=== PATIENT | female | born 1985 | race Hispanic/Latino ===

== ENCOUNTER 2018-11-27 02:43 | Inpatient (IN) ==
[2018-11-27] MEDS ORDERED: AMPICILLIN 2 GM/NS 2 GM/100 ML IVPB IV ONE (02:55)
[2018-11-27] MEDS ORDERED: STADOL IV PRN (02:55)
[2018-11-27] MEDS ORDERED: PEPCID IV PRN (02:55)
[2018-11-27] MEDS ORDERED: PEPCID PO PRN ×2 (02:55)
[2018-11-27] MEDS ORDERED: REGLAN PO PRN (02:55)
[2018-11-27] MEDS ORDERED: KEFZOL 1 GM/D5W 1 GM/50 ML IVPB IV PRN (02:55)
[2018-11-27] MEDS ORDERED: ZOFRAN IV PRN (02:55)
[2018-11-27] MEDS ORDERED: TYLENOL PO PRN (02:55)
[2018-11-27] MEDS ORDERED: XYLOCAINE-MPF 1% INJ PRN ×3 (03:00→20:19)
[2018-11-27] MEDS ORDERED: PITOCIN 30 UNITS/NS 30 UNIT/500 ML IV.SOLN IV SCH ×2 (03:00→20:30)
[2018-11-27] MEDS ORDERED: LR 1,000 ML IV SCH (03:00)
[2018-11-27] MEDS ORDERED: SODIUM CHLORIDE 0.9% INJ SCH (03:00)
[2018-11-27] MEDS ORDERED: MINERAL OIL PO PRN ×3 (03:00→20:19)
[2018-11-27 03:13] LABS: URINE SOURCE VOIDED
[2018-11-27 03:35] LABS: BASO# 0.02 X1000 (0.0-0.2); BASO% 0.3 % (0.0-0.8); EOS# 0.04 X1000 (0.0-0.7); EOS% 0.6 % (0.0-10.0); HEMATOCRIT 31.8 % (37.0-47.0); HEMOGLOBIN 10.5 g/dL (12.0-16.0); IMM GRAN# 0.02 X1000 (0.0-0.04); IMM GRAN% 0.3 % (0.0-0.5); LYMPH# 2.08 X1000 (1.2-3.4); LYMPH% 31.8 % (20.5-51.1); MCH 27.9 PG (27-31); MCV 84.6 FL (81-99); MONO# 0.47 X1000 (0.11-0.59); MONO% 7.2 % (1.7-9.3); MPV 11.5 FL (7.4-10.4); NEUT# 3.92 X1000 (1.4-6.5); NEUT% 59.8 % (42.2-75.2); PLT 225 X1000 (130-400); RBC 3.76 XMIL (4.2-5.4); WBC 6.55 X1000 (4.8-10.8)
--- NOTE | 2018-11-27 03:38 | OB/GYN PROGRESS NOTE ---
Progress Note OB - . OB Progress Note: Laboratory Results - last 24 hr 11/27/18 03:00 Urine Source VOIDED HISTORY AND DELIVERY NOTE Miss Horn is a 33 year old with IUP at term with no care who came in with contractions. On arrival she was 6 cm and 10 minutes later she was complete and pushing. History of previous precipitous delivery of LVFI weighing 7lbs 11ounces with apgars of 9 and 10 at 1 and 5 minutes respectively. Placenta intact. Cord blood obtained. EBL 150 cc. No nuchal cord, no vaginal or cervical lacerations. Mother tolerated procedure well. infant to new born nursery. Please see dictation.
[2018-11-27 03:39] LABS: BILIRUBIN URINE NEGATIVE (NEGATIVE); BLOOD URINE 3+ (NEGATIVE); CLARITY CLEAR (CLEAR); COLOR YELLOW; GLUCOSE URINE NEGATIVE (NEGATIVE); KETONE URINE NEGATIVE (NEGATIVE); LEUKOCYTES URINE NEGATIVE (NEGATIVE); NITRITE URINE NEGATIVE (NEGATIVE); PROTEIN URINE NEGATIVE (NEGATIVE); SP GRAVITY URINE 1.005; UROBILINOGEN URINE NORMAL
[2018-11-27 03:40] LABS: UR AMPHETAMINES QUAL NONE DETECTED (NONE DETECT); UR BARBITUATES QUAL NONE DETECTED (NONE DETECT); UR BENZODIAZEPIN QUAL NONE DETECTED (NONE DETECT); UR CANNABINOIDS QUAL NONE DETECTED (NONE DETECT); UR COCAINE QUAL NONE DETECTED (NONE DETECT); UR METHADONE QUAL NONE DETECTED (NONE DETECT); UR METHAMPHETAMINE QUAL NONE DETECTED (NONE DETECT); UR OPIATES QUAL NONE DETECTED (NONE DETECT); UR OXYCODONE QUAL NONE DETECTED (NONE DETECT); UR PCP QUAL NONE DETECTED (NONE DETECT); UR PROPOXYPHENE QUAL NONE DETECTED (NONE DETECT); UR TCA QUAL NONE DETECTED (NONE DETECT)
[2018-11-27] MEDS ORDERED: PITOCIN 20 UNITS/NS 20 UNITS/1,000 ML IV.SOLN ONE (04:03)
[2018-11-27] MEDS ORDERED: BOOSTRIX VACCINE IM ONE (04:03)
[2018-11-27] MEDS ORDERED: BENADRYL PO PRN ×2 (04:03→20:19)
[2018-11-27] MEDS ORDERED: AMBIEN PO PRN ×2 (04:03→20:19)
[2018-11-27] MEDS ORDERED: M-M-R II VACCINE SUBQ ONE (04:03)
[2018-11-27] MEDS ORDERED: HYDROXYZINE IM PRN ×2 (04:03→20:19)
[2018-11-27] MEDS ORDERED: PITOCIN IM PRN ×2 (04:03→20:19)
[2018-11-27] MEDS ORDERED: PERI MEDS (DERMOPLAST/NUPERCAINAL/TUCKS) MISC PRN ×2 (04:03→20:19)
[2018-11-27] MEDS ORDERED: ATARAX PO PRN ×2 (04:03→20:19)
[2018-11-27] MEDS ORDERED: CYTOTEC PO PRN ×2 (04:03→20:19)
[2018-11-27] MEDS ORDERED: BENADRYL IV PRN ×2 (04:03→20:19)
[2018-11-27 04:11] LABS: RPR NON-REACTIVE (NONREACTIVE)
[2018-11-27 04:12] LABS: RAPID HIV PRESUMPTIVE NEGATIVE
[2018-11-27] MEDS ORDERED: PITOCIN 20 UNITS/NS 20 UNITS/1,000 ML IV.SOLN IV SCH ×2 (04:15→20:30)
[2018-11-27] MEDS ORDERED: AMPICILLIN 1 GM/NS 1 GM/50 ML IVPB IV SCH (06:56)
--- NOTE | 2018-11-27 07:34 | HISTORY AND PHYSICAL ---
HISTORY OF PRESENT ILLNESS: The patient is a 33-year-old, G8, P7-0-0-7 with an intrauterine at term, who shows up with contractions. Patient has had no care. On arrival, she is checked and she is 6 cm dilated, approximately 10 minutes later, patient was complete and pushing. She has a history of precipitous delivery, so we were prepared. The patient was delivered via normal spontaneous vaginal delivery of a live viable female , weighing 7 pounds 11 ounces with 's of 9 and 10 at one and five minutes respectively. Placenta was intact. Cord blood was obtained. Estimated blood loss 150 mL. No nuchal cord. No vaginal or cervical lacerations. The patient tolerated the procedure well and the infant went to the nursery. Upon review of records, patient came in with only complaints of contractions. REVIEW OF SYSTEMS: Negative. OB HISTORY: Significant for 7 previous deliveries. Last delivery in October 2017. According to hospital records, patient is O positive. ALPINE PATROLLER HISTORY: Noncontributory. FAMILY HISTORY: Noncontributory. SURGICAL HISTORY: Noncontributory. ALLERGIES: No known drug allergies. MEDICATIONS: vitamins, per patient. PHYSICAL EXAM: GENERAL: The patient is awake, alert, oriented x3. VITAL SIGNS: Stable. CARDIOVASCULAR: S1, S2 normal. LUNGS: Clear. ABDOMEN: abdomen with uterus approximately 2 cm below the umbilicus. Fundus is firm. Minimal bleeding. EXTREMITIES: No edema. ASSESSMENT AND PLAN: Intrauterine at term, delivered on arrival to the hospital, vaginal delivery. PLAN: Routine care. Will follow up on the results of the care labs that were drawn. The patient's speaks Kiche - a dialect of maori in [facility]. We used translation line for conversations with patient. No family members were present. cc: MD CARMEN Gutierrez
[2018-11-27] MEDS ORDERED: FLU VACCINE IM ONE (11:15)
[2018-11-27] MEDS: MOTRIN PO PRN ×2 (12:08→18:54)
[2018-11-27 13:37] LABS: RUBELLA SCREEN IMMUNE (IMMUNE)
[2018-11-27] MEDS ORDERED: MOTRIN PO PRN (20:19)
[2018-11-27] MEDS ORDERED: PERCOCET-5 PO PRN (20:19)
[2018-11-27 20:28] LABS: HIV ANTIBODY SCREEN SEE COMMENTS
[2018-11-27] MEDS ORDERED: PERICOLACE PO SCH (21:00)
[2018-11-27] MEDS: NORCO-5 PO PRN (22:00)
[2018-11-27] MEDS: PERICOLACE PO SCH (23:08)
[2018-11-28 07:05] LABS: BASO# 0.01 X1000 (0.0-0.2); BASO% 0.1 % (0.0-0.8); EOS# 0.11 X1000 (0.0-0.7); EOS% 1.5 % (0.0-10.0); HEMATOCRIT 26.3 % (37.0-47.0); HEMOGLOBIN 8.4 g/dL (12.0-16.0); IMM GRAN# 0.02 X1000 (0.0-0.04); IMM GRAN% 0.3 % (0.0-0.5); LYMPH# 2.81 X1000 (1.2-3.4); LYMPH% 37.3 % (20.5-51.1); MCH 27.4 PG (27-31); MCHC 31.9 g/dL (33-37); MCV 85.7 FL (81-99); MONO# 0.47 X1000 (0.11-0.59); MONO% 6.2 % (1.7-9.3); MPV 11.5 FL (7.4-10.4); NEUT# 4.12 X1000 (1.4-6.5); NEUT% 54.6 % (42.2-75.2); PLT 196 X1000 (130-400); RBC 3.07 XMIL (4.2-5.4); RDW 14.9 % (11.5-14.5); WBC 7.54 X1000 (4.8-10.8)
--- NOTE | 2018-11-28 11:14 | PROGRESS NOTE ---
DATE: 11/28/2018 HPI: 33-year-old, who delivered a 7 pound 11 ounce female, Apgars 9 and 10, EBL 150 mL, PPD #1. Patient had no care and speaks via [employer] correctional medicine physician SUBJECTIVE: The patient reports she is doing well this morning. Denies any complaints. States she has some mild abdominal cramping. The patient has had minimal bleeding. She is tolerating p.o. intake without nausea and vomiting. She is not having any difficulty ambulating, urinating. She denies any fever, chest pain, shortness of breath, headache, leg pain. She is bottle feeding her . She desires to be discharged with oral contraception as she does not want any more children at this time OBJECTIVE: Vital signs: Temperature of 97.3 degrees, pulse rate 60, respiratory rate 20, blood pressure 112/68, her O2 saturation is 98% on room air. General: No acute distress. Alert, cooperative. HEENT: Atraumatic and normocephalic. Heart: Regular rate and rhythm. No murmurs, rubs, gallops or clicks. Lungs: Clear to auscultation bilaterally. No adventitious breath sounds. Abdomen: Normoactive bowel sounds. Abdomen is soft and nontender to palpation. No fundal tenderness. Pelvic exam: Normal external genitalia. Moderate lochia rubra on pad. Extremities: No cyanosis. Nontender to palpation bilaterally. Negative Homans sign. LABS: The patient's hemoglobin and hematocrit dropped from 10.5 and 31.8 down to 8.4 and 26.3 respectively. Platelet count is 196. labs have resulted and patient is RPR nonreactive, HIV presumptive negative. Rubella immune. UDS is negative. No new imaging. ASSESSMENT: This is a 33-year-old, who is PPD #1, no care, language barrier, and asymptomatic anemia PLAN: 1. Routine care. -The patient has ibuprofen and [place] are written for pain management. -Bottle feeding. -Discussed multiple methods of contraception with the patient via [employer] correctional medicine physician, and patient decided that she would like to be discharged home on the mini pill. She understands that she has to take the same pill every day at the same time, or she has a high likelihood of becoming again. She also understands that she can become as soon as 3 weeks after delivery. 2. No care. -The patient will need a social media marketing specialist consult. 3. Language barrier. -This patient speaks [place] An correctional medicine physician has been used for every interaction as the patient poorly understands Yakut or Maldivian. 4. Asymptomatic anemia likely secondary to combination of acute blood loss from vaginal delivery, hemodilation from IVF and chronic iron deficiency - Initiate Iron 325mg BID and Colace for constipation prevention Disposition: Patient will be discharged tomorrow AM. cc: MD Dianna Moore MD MTDD
[2018-11-28 13:13] LABS: HEPATITIS B SURFACE ANTIGEN SEE COMMENTS
[2018-11-28] MEDS: MOTRIN PO PRN ×2 (15:02→23:03)
[2018-11-28] MEDS: NORCO-5 PO PRN (15:02)
[2018-11-28] MEDS: PERICOLACE PO SCH (23:03)
[2018-11-28] MEDS: FERROUS SULFATE PO SCH (23:03)
--- NOTE | 2018-11-29 06:59 | DISCHARGE SUMMARY ---
ADMISSION DATE: 11/27/2018 DISCHARGE DATE: HISTORY OF PRESENT ILLNESS AND HOSPITAL COURSE: Ms. Horn was admitted as a 33-year-old, G 8, P 7- 0-0-7 with an intrauterine at term. She was delivered of a live viable female infant, weighing 7 pounds and 11 ounces, with Apgars at 9 and 10 at one and five minutes respectively. The patient's course was unremarkable. She progressed through her course without any difficulty and is being discharged home on day #2 in stable condition. The patient reports lochia is less than menses. She has minimal pain. LABORATORY DATA: Last labs, her hemoglobin and hematocrit were 8.4 and 26.3, platelets were 196,000. DISCHARGE PHYSICAL EXAMINATION: Vital Signs: Temperature is 96.8 degrees, pulse is 67, respiratory rate 18, blood pressure 110/70. General: Patient is awake, alert, oriented x3, in no apparent distress. HEENT: Patient is normocephalic,atraumatic. CV: S1 and S2 are normal. Lungs: Clear. Abdomen: Patient has a firm fundus below the umbilicus. Extremities: No edema. ASSESSMENT AND PLAN: The patient is day 2 status post a normal spontaneous vaginal delivery. The patient is multigravida, probably desires to have her tubes tied. Plan is to discharge patient home to self care. The patient is to follow up with Dr. Nuñez in 6 weeks for her care and to discuss possibly a tubal ligation and some kind of contraception. She desire oral contraception - rx for sprintec sent to pharmacy- [facility] The patient speaks Kiche and some Lao. The patient is being discharged home in stable condition. Prescription of Motrin is sent to [facility] pharmacy. The patient reports understanding. cc: MD CARMEN Gutierrez
[2018-11-29 07:40] VITALS: BP 115/67
[2018-11-29] MEDS: FERROUS SULFATE PO SCH (08:34)
== END 2018-11-29 09:15 | disposition home or self-care (01) | DRG 806 ==
LOC: P.OPLD 02:43 → P.LD 02:46
PROVIDERS: ADMIT Obstetrics & Gynecology; ATTEND Obstetrics & Gynecology
CPT/HCPCS: 59025; 80104; 80301; 80305; 81003; 82947; 85025; 86592; 86701; 86703; 86762; 86850; 86900; 86901; 87340; 87389; 87390; 87491; 87591; 90686; A9270; G0431; G0434; G0477; J0290; J0595; J2590